=== PATIENT | female | born 1965 | race Caucasian/White ===

== ENCOUNTER 2017-12-26 09:20 | Emergency (ER) | payer BC ==
--- NOTE | 2017-12-26 10:14 | UC ---
Complaint Female HPI - HPI Summary HPI Summary: c/o several days with urinary frequency and burning, denies flank pain or fever. This is the first time she has had these symptoms in the past year. - History Of Current Complaint Chief Complaint: [facility]CGU Stated Complaint: URINARY ISSUE Time Seen by Provider: 12/26/17 09:41 Hx Obtained From: Patient ?: No Onset/Duration: Gradual Onset, Lasting Days Timing: Intermittent, Lasting Minutes Severity Initially: Mild Severity Currently: Moderate Pain Intensity: 7 Character: Burning Aggravating Factor(s): Urination Alleviating Factor(s): Nothing Associated Signs And Symptoms: Positive: Negative - Risk Factors Ectopic Risk Factor: Negative Ovarian Torsion Risk Factor: Negative - Allergies/Home Medications Allergies/Adverse Reactions: Allergies Allergy/AdvReac Type Severity Reaction Status Date / Time No Known Allergies Allergy Verified 12/26/17 09:38 Home Medications: Home Medications Citalopram TAB* [Celexa TAB*] 40 mg PO DAILY 12/26/17 [History Confirmed ] PMH/Surg Hx/FS Hx/Imm Hx Previously Healthy: Yes - Surgical History Surgical History: None - Social History Alcohol Use: Occasionally Substance Use Type: None Smoking Status (MU): Never Smoked Tobacco Review of Systems Constitutional: Negative Genitourinary: Dysuria, Frequency All Other Systems Reviewed And Are Negative: Yes Physical Exam Triage Information Reviewed: Yes Appearance: Well-Appearing, No Pain Distress, Well-Nourished Vital Signs: Initial Vital Signs Temp 97.9 F 12/26/17 09:34 Pulse 44 12/26/17 09:34 Resp 18 12/26/17 09:34 BP 94/58 12/26/17 09:34 Pulse Ox 99 12/26/17 09:34 Vital Signs Reviewed: Yes Eye Exam: Normal Eyes: Positive: Conjunctiva Clear ENT: Positive: Pharynx normal, Uvula midline Neck: Positive: Supple, Nontender, No Lymphadenopathy Respiratory: Positive: Chest non-tender, Lungs clear, Normal breath sounds, No respiratory distress Cardiovascular: Positive: RRR, No Murmur, Pulses Normal, Brisk Capillary Refill Abdomen Description: Positive: Nontender, No Organomegaly, Soft Complaint Female Dx - Course Course Of Treatment: start course of antibiotics as prescribed and symptomatic treatment of dysuria with pyridium when needed, plentiful fluid intake and rest. F/u PCP - Differential Dx/Diagnosis Provider Diagnoses: UTI Discharge - Discharge Plan Condition: Stable Disposition: HOME Patient Education Materials: Phenazopyridine (By mouth), Urinary Tract Infection in Women (ED) Referrals: No Primary Care Phys,NOPCP [Primary Care Provider] -
--- NOTE | 2017-12-27 15:14 | UC ---
- Progress Note Progress Note: Urine culture with no growth If feeling better may continue antibiotic If no change in symptoms - needs follow up with PCP
== END 2017-12-26 10:24 | disposition home or self-care (01) ==
LOC: UCEAST 09:20
DX: N39.0 Urinary tract infection, site not specified (principal)
CPT/HCPCS: 81003; 87086; 99202; G0463